=== PATIENT | female | born 1960 | race Caucasian/White ===

== ENCOUNTER → 2016-10-02 | Outpatient (CLI) | payer OTHER ==
[2016-10-02 09:45] LABS: Basophils # (auto) 0 uL; Basophils % (auto) 0.4 % (0.0-2.0); CONDITION Y; Eosinophils # (auto) 0.2 uL; Eosinophils % (auto) 3.3 % (0.0-7.0); Hematocrit 42.8 % (36.0-46.0); Hemoglobin 14.7 g/dL (12.2-16.2); Lymphocytes # (auto) 2.5 uL; Lymphocytes % (auto) 41.8 % (10.0-50.0); Mean Corpuscular Hemoglobin 29.2 pg (28.0-32.0); Mean Corpuscular Hgb Conc. 34.3 g/dL (32.0-36.0); Mean Corpuscular Volume 85.3 fL (80.0-100.0); Mean Platelet Volume 7.8 fL (7.4-10.4); Monocytes # (auto) 0.5 uL; Monocytes % (auto) 8.3 % (0.0-12.0); Neutrophils # (auto) 2.7 uL; Neutrophils % (auto) 46.2 % (37.0-80.0); Platelet Count (auto) 278 10^3/uL (140-450); Red Cell Distribution Width 14.2 % (11.6-16.0); White Blood Cell 5.9 10^3/uL (4.4-10.8)
[2016-10-02 10:02] LABS: Albumin 4.1 g/dL (3.4-5.0); BUN/Creatinine Ratio 20.3; Bilirubin, Total 0.6 mg/dL (0.2-1.0); Calcium 9.5 mg/dL (8.5-10.1); Potassium 3.9 mmol/L (3.5-5.1); Total Protein 7.5 g/dL (6.4-8.2)
[2016-10-02 16:42] LABS: Urine Bilirubin Negative (Negative); Urine Blood Negative /uL (Negative); Urine Color Yellow (Yellow); Urine Glucose Normal (Normal); Urine Ketone Negative (Negative); Urine Mucus FEW (None Seen); Urine Nitrite Negative (Negative); Urine RBC 1 /hpf (0 - 4); Urine Squamous Epithelial Cell FEW /hpf (<5); Urine Urobilinogen Normal (Negative); Urine pH 5.5 (5.0-8.0)
== END | disposition home or self-care (01) ==
LOC: LAB 09:09
PROVIDERS: ATTEND Internal Medicine
DX: Z68.41 Body mass index [BMI] 40.0-44.9, adult (principal); Z12.11 Encounter for screening for malignant neoplasm of colon
CPT/HCPCS: 36415; 80053; 80061; 81001; 84443; 85025

== ENCOUNTER → 2016-12-15 | Outpatient (CLI) | payer OTHER ==
[2016-12-15 16:52] LABS: Basophils # (auto) 0 uL; Basophils % (auto) 0.4 % (0.0-2.0); Eosinophils # (auto) 0.1 uL; Eosinophils % (auto) 1.6 % (0.0-7.0); Hematocrit 40.7 % (36.0-46.0); Hemoglobin 14.2 g/dL (12.2-16.2); Lymphocytes # (auto) 2.6 uL; Lymphocytes % (auto) 27.4 % (10.0-50.0); Mean Corpuscular Hemoglobin 30.5 pg (28.0-32.0); Mean Corpuscular Hgb Conc. 34.8 g/dL (32.0-36.0); Mean Corpuscular Volume 87.5 fL (80.0-100.0); Mean Platelet Volume 7.4 fL (6.9-10.8); Monocytes # (auto) 0.7 uL; Monocytes % (auto) 7.4 % (0.0-12.0); Neutrophils # (auto) 6.1 uL; Neutrophils % (auto) 63.2 % (37.0-80.0); Platelet Count (auto) 237 10^3/uL (140-450); White Blood Cell 9.6 10^3/uL (4.4-10.8)
[2016-12-15 17:13] LABS: Albumin 4.1 g/dL (3.4-5.0); BUN/Creatinine Ratio 11.8; Bilirubin, Total 0.7 mg/dL (0.2-1.0); Calcium 9.1 mg/dL (8.5-10.1); Potassium 3.8 mmol/L (3.5-5.1); Total Protein 7.8 g/dL (6.4-8.2)
== END | disposition home or self-care (01) ==
LOC: LAB 16:17
PROVIDERS: ATTEND Internal Medicine
DX: E03.9 Hypothyroidism, unspecified (principal); K57.92 Diverticulitis of intestine, part unspecified, without perforation or abscess without bleeding
CPT/HCPCS: 36415; 80053; 85025; 86141; 86800

== ENCOUNTER 2024-05-16 09:15 | Inpatient (IN) | payer MEDICARE, OTHER ==
[~2024-05-16] VITALS: Ht 170.2 cm; Wt 117.6 kg
[2024-05-16] MEDS ORDERED: fentaNYL CITRATE 100 MCG/2 ML VL ONE (10:46)
[2024-05-16] MEDS ORDERED: HYDROmorphone HCL 2 MG/ML VL/or syr ONE (10:46)
[2024-05-16] MEDS ORDERED: MIDAZOLAM HCL 2MG/2ML 2ml VIAL (1mg/ml) ONE (10:46)
[2024-05-16] MEDS ORDERED: GLYCOPYRROLATE 0.2 MG/ML 1ML VIAL ONE (10:47)
[2024-05-16] MEDS ORDERED: DexAMETHasone SOD PHOS 10MG/1ML VIAL INJ ONE (10:47)
[2024-05-16] MEDS ORDERED: PROPOFOL 10 MG/ML 20 ML IV ONE (10:47)
[2024-05-16] MEDS ORDERED: ROCURONIUM 10MG/ML 10ML VIAL IV ONE (10:47)
[2024-05-16] MEDS ORDERED: ePHEDrine SULFATE 50 MG/ML AMP ONE (10:47)
[2024-05-16] MEDS ORDERED: LIDOCAINE 2% (LOCAL ANESTH.) PF 5ml SDV ONE (10:47)
[2024-05-16] MEDS ORDERED: ONDANSETRON HCL 4 MG/2 ML VIAL ONE (10:47)
[2024-05-16] MEDS ORDERED: MORPHINE SULF PF 5 MG/10 ML VIAL ONE (11:46)
[2024-05-16] MEDS: ACETAMINOPHEN IV 1000 MG/100ML (10MG/ML) IV ONE (12:07)
[2024-05-16] MEDS: CELECOXIB 100 MG CAP PO ONE (12:07)
[2024-05-16] MEDS: PREGABALIN CAPSULE 75 MG CAP PO ONE (12:07)
[2024-05-16] MEDS ORDERED: MORPHINE SULFATE INJ 2 MG/ml SYRG IV PRN (12:15)
[2024-05-16] MEDS ORDERED: NITROGLYCERIN 0.4 MG SL TAB SL PRN (12:15)
[2024-05-16] MEDS ORDERED: HYDROmorphone HCL 2 MG/ML VL/or syr IV PRN ×2 (12:15)
[2024-05-16 14:10] VITALS: O2SAT 98
[2024-05-16 17:21] VITALS: BP 147/82; PULSE 55; RESP 16; TEMP 97.3; O2SAT 97
[2024-05-16] MEDS: VANCOMYCIN HCL 1000 MG VL ONE ×2 (17:54→17:55)
[2024-05-16] MEDS: TRANEXAMIC ACID 10 ML ONE ×2 (17:54→17:55)
[2024-05-16] MEDS: ceFAZolin 2 GM/D5W100ml 100 ML IV ONE (17:54)
[2024-05-16] MEDS: CEFEPIME 1GM/ 50ML 50 ML IV ONE (17:55)
[2024-05-16] MEDS: KETOROLAC TROMETH 60MG/2ML VIAL ONE (17:55)
[2024-05-16] MEDS: ceFAZolin 1GM/50ML 50 ML IV SCH (17:55)
[2024-05-16] MEDS: LACTATED RINGER'S 1,000 ML IV SCH (17:55)
[2024-05-16] MEDS: BUPIVACAINE 0.25% INJ 50ML VIAL ONE (17:55)
[2024-05-16] MEDS: ENOXAPARIN SOD 30 MG/0.3 ML SYRINGE SC ONE (17:56)
[2024-05-16] MEDS: LIDOCAINE 2% JELLY 11ml (GLYDO) ONE (17:56)
[2024-05-16] MEDS: SODIUM CHLOR 0.9% PF (SALINE LOCK) 10ML VIAL/SYR IV SCH (17:56)
[2024-05-16] MEDS: ONDANSETRON HCL 4 MG/2 ML VIAL IV ONE (17:56)
[2024-05-16 18:36] VITALS: PULSE 55; RESP 16; O2SAT 97
[2024-05-16] MEDS: OXYCODONE W/ ACETAMINOPHEN 5/325MG TABLET PO PRN (19:55)
[2024-05-16] MEDS: ONDANSETRON HCL 4 MG/2 ML VIAL IV PRN (19:55)
[2024-05-16 20:00] VITALS: PULSE 66; RESP 18; O2SAT 99
[2024-05-16 20:42] VITALS: BP 139/82; PULSE 66; RESP 18; TEMP 98.2; O2SAT 99
[2024-05-16] MEDS: DOCUSATE SOD 100 MG CAP PO SCH (21:21)
[2024-05-17] VITALS (8 sets, daily range): BP systolic 105–121; BP diastolic 49–61; PULSE 64–84; RESP 16–19; TEMP 98–98.9; O2SAT 92–99
--- NOTE | 2024-05-17 06:04 | DVHOP2 ---
Operative Report - 2 Report Details Date: 05/16/24 Preop Diagnosis: Right hip osteoarthritis Postop Diagnosis: Right hip osteoarthritis Surgeon: Yunier Benavidez DO/ David Velasquez MD Engineering Systems Analyst: Tono ESPINOSA Anesthesiologist: Froy TREADWELL Anesthesia: General Implant: see implant log Consent: The patient was informed of the risks and benefits of the procedure. These include but are not limited to complications of anesthesia, postoperative infection, incomplete relief of symptoms, recurrence of symptoms, damage to blood vessels, nerves and tendons, deep venous thrombosis, pulmonary embolism and possible need for repeat surgery in the future. Estimated Blood Loss: 300 cc Name of Procedure Performed Right total hip arthroplasty, increased complexity due to BMI above 40 Procedure Details Procedure Details: FINDINGS: Extensive degenerative disease with grade IV changes INDICATION: This patient has failed non-operative treatments for hip arthritis and is now indicated for a total hip replacement. Preoperatively in the waiting area as well as in the office, I had a long discussion with the patient regarding the plan, the expected outcome, the risks, benefits, and alternatives of surgery. The risks include, but are not limited to, infection (which may require future surgery and removal of implants) , bleeding (which may require a transfusion), damage to nerves, arteries, veins, tendons, muscles and other adjacent structures. Also discussed the possibilities of dislocation, leg-length discrepancy, intraoperative fractures, implant loosening, heterotopic bone formation, and revision for variety of reasons, and medical complications etc. This was discussed at length and consent has been obtained. DESCRIPTION OF PROCEDURE: In the preoperative holding area, the consent was reviewed and the appropriate extremity was verified by the patient and marked with my initials. The patient was then transferred to the operating theatre. Appropriate anesthetia was induced. All bony prominences were well padded. A time out was performed verifying the side and site of surgery according to standard protocol. Preoperative antibiotics were given. Tranexamic acid was given. The patient was then placed in the lateral decubitus position and fixed with rigid pelvic fixation. All bony prominences were well padded and an axillary roll was placed. The affected hip area was then prepped and draped in the usual sterile fashion. We made a standard posterolateral incision sharply through the skin and carried our dissection down through subcutaneous tissue to the underlying fascia achieving hemostasis where necessary. We incised the fascia in line with our incision. We identified and protected the sciatic nerve. We took down the external rotators and hip capsule from their insertion into the greater trochanter, tagged them and retracted them posteriorly for further protection of the sciatic nerve. We then dislocated the femoral head and performed an osteotomy of the femoral neck in accordance with our pre-operative plan. The labrum was excised with a long-handle knife, and we exposed the acetabular rim and cotyloid fossa. We then reamed up to our final size in accordance with the preoperative plan. We copiously irrigated and then impacted the final cup into position. We placed acetabular dome screws into the posterior-superior quadrant in the usual fashion. We irrigated the cup and impacted the liner, checking to make sure it was well seated. Attention was then turned to the femur. We used a box osteotome followed by a canal finder to gain entry to the canal. Intramedullary contents were suctioned and care was taken to ensure they did not touch the tissues. We sequentially reamed until good cortical contact, then broached up to out final size. We trialed with the appropriate femoral neck and head and reduced the hip. The hip was taken through a full range of motion. The hip soft tissues were examined in extension and external rotation, the anterior capsule and IT band were palpated, and combined anteversion was determined to be 40 degrees. The hip was stable at maximum flexion, at 90 degrees of flexion and 45 degrees of internal rotation and the position of sleep. The hip was then dislocated and trial components removed. We copiously irrigated the wound and impacted the final femoral stem into position. The femoral head was impacted onto a clean and dry trunion and confirmed to be seated. The hip was reduced ensuring to tissues in the acetabular cup. We again brought it through a full functional range of motion and there was no evidence for dislocation, instability, or impingement. The checkpoint was removed. A dilute betadine solution (17.5mL in 500mL saline) was used to wash the joint and left to sit for 3 minutes. This was then irrigated out with copious amounts of pulse lavage. We sprinkled 1g vancomycin powder below the fascia and 1g above the fascia. We copiously irrigated the wound and soft tissues. The short external rotators and capsule were repaired to the greater trochanter through drill holes, and the quadratus was repaired. We palpated the sciatic nerve in continuity without tension. The fascia was closed with vicryl and a barbed suture. We closed over the fascia with vicryl suture and re-approximated the skin with donta. . A sterile dressing was placed. We returned the patient to the supine position. We verified all lower extremity compartments were soft and compressible and that we had intact distal pulses and checked our leg length nondenominational. Condition Good Disposition Still a Patient DAVID VELASQUEZ MD May 17, 2024 06:04
[2024-05-17 07:31] LABS: Hematocrit 33.8 % (36.0-46.0); Hemoglobin 11.3 g/dL (12.2-16.2)
[2024-05-17 07:43] LABS: Alanine Aminotransferase 12 U/L (7-40); Alkaline Phosphatase 85 U/L (46-116); Anion Gap 7 (5-15); Aspartate Aminotransferase 21 U/L (13-40); BUN/Creatinine Ratio 13.7 (10.0-20.0); Blood Urea Nitrogen 10 mg/dL (9-23); Calcium 9.2 mg/dL (8.7-10.4); Carbon Dioxide 24 mmol/L (20-31); Glucose 97 mg/dL (74-106); Potassium 3.8 mmol/L (3.5-5.1); Sodium 139 mmol/L (136-145)
[2024-05-17 07:44] LABS: Bilirubin, Total 0.7 mg/dL (0.2-1.0)
[2024-05-17 07:52] LABS: Chloride 108 mmol/L (98-107)
--- NOTE | 2024-05-17 08:02 | DVHPN2 ---
Progress Note Date Seen: May 17, 2024 Medical Necessity Reason Pt with a Central, PICC or Fol: No Subjective Patient reports: No new complaints (patient is doing well, overall denies any pain and has been resting comfortably) Objective vital signs Vital Sign Date Time Temp Pulse Resp B/P (MAP) Pulse Ox O2 Delivery O2 Flow Rate FiO2 05/17/24 05:00 98.4 76 19 106/56 (73) 95 98.4 05/16/24 20:00 Room Air* 0 N/A Nasal Cannula* Total Intake and Output 05/16/24 05/16/24 05/17/24 15:00 23:00 07:00 Intake Total 100 ml 50 ml 400 ml Balance 100 ml 50 ml 400 ml medications Current Medications Medications Dose Ordered Sig/Kurt Route Start Time Stop Time Status Last Admin Dose Admin Lactated Ringer's 1,000 ml @ 100 mls/hr Q10H IV 05/16/24 12:15 05/16/24 22:15 100 MLS/HR Sodium Chloride 10 ml Q8HR IV 05/16/24 14:00 05/17/24 06:19 10 ML Oxycodone/ Acetaminophen 1 tab Q4HP PRN PO 05/16/24 12:15 05/16/24 19:55 1 TAB Hydromorphone HCl 1 mg Q2HP PRN IV 05/16/24 12:15 Ondansetron HCl 4 mg Q6HP PRN IV 05/16/24 12:15 05/16/24 19:55 4 MG Docusate Sodium 100 mg Q12HR PO 05/16/24 22:00 05/16/24 21:21 100 MG Enoxaparin Sodium 40 mg DAILY SC 05/17/24 10:00 Future Hold Nitroglycerin 0.4 mg Q5MINP PRN SL 05/16/24 12:15 Morphine Sulfate 2 mg Q30M PRN IV 05/16/24 12:15 Examination: GENERAL:Normal, MSK:Abnormal laboratory and microbiology Laboratory Tests 05/17/24 05:37 Test 05/17/24 05:37 Range/Units Serum Glucose 97 74-106 mg/dL Problem List/Assessment/Plan Problem List/Assessment/Plan 63 year old female who is s/p Right REYES POD 1 1. Pain control 2. DVT ppx 3. WBAT RLE with walker and posterior hip precautions 4. Physical therapy with posterior hip protocol 5. Abduction pillow at night when sleeping Plan discussed with: Patient Date of Service: May 17, 2024 Billing Provider: YESENIA VELASQUEZ MD Common Visit Codes: NOT BILLABLE SOTO PEDROZA NP May 17, 2024 08:02
--- NOTE | 2024-05-17 08:36 | DVH ---
CLINICAL INDICATION: sp Right REYES TECHNIQUE: XY PELVIS AP Comparison: None FINDINGS/IMPRESSION: : There is no evidence of acute fracture or dislocation. Right hip arthroplasty. Severe degenerative changes of the left hip.
--- NOTE | 2024-05-17 14:27 | DVHINCON2 ---
Date Seen: May 17, [address] VELASQUEZ Family History: Cardiovascular disease G8 FATHER, FHx: dementia G8 MOTHER, Osteoarthritis G8 MOTHER, Allergies: Coded Allergies: NO KNOWN ALLERGIES (Unverified , 02/08/16) Home Meds No Active Prescriptions or Reported Meds Current Medications Current Medications Medications (Trade) Dose Ordered Sig/Kurt Route PRN Reason Start Time Stop Time Status Last Admin Docusate Sodium (Colace Capsule) 100 mg Q12HR PO 05/16/24 22:00 05/17/24 09:50 Enoxaparin Sodium (Lovenox) 40 mg DAILY SC 05/17/24 10:00 Vital Signs Vital Signs Date Time Temp Pulse Resp B/P (MAP) Pulse Ox O2 Delivery O2 Flow Rate FiO2 05/17/24 13:00 98.9 72 19 105/49 (67) 96 98.9 05/17/24 08:23 Room Air* 0 N/A Nasal Cannula* Labs/Diagnostic Data Labs Test 05/17/24 05:37 Range/Units Hemoglobin 11.3 L 12.2-16.2 g/dL Hematocrit 33.8 L 36.0-46.0 % Sodium Level 139 136-145 mmol/L Potassium Level 3.8 3.5-5.1 mmol/L Chloride Level 108 H 98-107 mmol/L Carbon Dioxide Level 24 20-31 mmol/L Anion Gap 7 5-15 Blood Urea Nitrogen 10 9-23 mg/dL Creatinine 0.73 0.550-1.02 mg/dL Glomerular Filtration Rate Calc 91 >90 mL/min BUN/Creatinine Ratio 13.7 10.0-20.0 Serum Glucose 97 74-106 mg/dL Calcium Level 9.2 8.7-10.4 mg/dL Total Bilirubin 0.7 0.2-1.0 mg/dL Aspartate Amino Transferase (AST) 21 13-40 U/L Alanine Aminotransferase (ALT) 12 7-40 U/L Alkaline Phosphatase 85 46-116 U/L Total Protein 6.0 5.7-8.2 g/dL Albumin 4.0 3.2-4.8 g/dL Assessment SEE DICTATED NOTE Plan discussed with: Patient Date of Service: May 17, 2024 Billing Provider: AGNIESZKA EDWARDS MD Common Visit Codes: [id number] INP/OBS CARE (HIGH) AGNIESZKA EDWARDS MD May 17, 2024 14:27
[2024-05-17] MEDS ORDERED: HYDROmorphone HCL 2 MG/ML VL/or syr IV PRN (14:30)
[2024-05-17] MEDS: SODIUM CHLORIDE 0.9% 1,000 ML IV SCH (14:47)
--- NOTE | 2024-05-17 15:35 | DVHINCON2 ---
DATE OF CONSULTATION: 05/17/2024 INTERNAL MEDICINE CONSULT HISTORY OF PRESENT ILLNESS: The patient is a 63-year-old lady who has been admitted after she underwent surgery on the right hip for DJD of the hip. The patient denies any chest pain, shortness of breath. She was dizzy, however, she got up with physical therapy. No history of nausea or vomiting. REVIEW OF SYSTEMS: Review of rest of systems otherwise currently negative. PAST MEDICAL HISTORY: No significant illness in past. MEDICATIONS: She takes no medications on a regular basis. ALLERGIES: No known drug allergies. SOCIAL HISTORY: Denies smoking or alcohol. Lives at home with family. FAMILY HISTORY: Negative. PHYSICAL EXAMINATION: GENERAL: The patient is awake, alert. VITAL SIGNS: Temperature 98.4, pulse 71 per minute, blood pressure 105/49. SHEENT: Unremarkable. NECK: There is no JVD, no pedal edema. LUNGS: Equal bilaterally. No added sounds. CARDIOVASCULAR: S1, S2 are regular. No murmurs. ABDOMEN: Soft. There is no organomegaly. NEUROLOGIC: Nonfocal. MUSCULOSKELETAL: There is a dressing at the site of right hip surgery. ASSESSMENT AND PLAN: * Hypotension. The patient will be placed on IV fluids and blood pressure will be monitored. * Morbid obesity. * Status post right hip surgery for degenerative joint disease of the hip. The patient will be placed on physical therapy and pain medications. MD CAMI Garsia/CARLA TID: [id number] RECEIPT: [id number]
[2024-05-17] MEDS: ENOXAPARIN SOD 40 MG/0.4 ML SYRINGE SC ONE (16:49)
[2024-05-17] MEDS: ACETAMINOPHEN 325 MG TAB PO PRN (18:07)
[2024-05-18 01:00] VITALS: BP 103/58; PULSE 78; RESP 20; TEMP 98.4; O2SAT 94
[2024-05-18 05:00] VITALS: BP 133/55; PULSE 70; RESP 20; TEMP 98.2; O2SAT 96
[2024-05-18 07:28] LABS: Alanine Aminotransferase 10 U/L (7-40); Albumin 3.8 g/dL (3.2-4.8); Alkaline Phosphatase 75 U/L (46-116); Anion Gap 8 (5-15); Aspartate Aminotransferase 18 U/L (13-40); BUN/Creatinine Ratio 27.3 (10.0-20.0); Blood Urea Nitrogen 18 mg/dL (9-23); Calcium 9.4 mg/dL (8.7-10.4); Carbon Dioxide 25 mmol/L (20-31); Glucose 101 mg/dL (74-106); Potassium 3.7 mmol/L (3.5-5.1); Sodium 143 mmol/L (136-145); Total Protein 5.7 g/dL (5.7-8.2)
[2024-05-18 07:29] LABS: Basophils # (auto) 0 10 ^3/uL (0-0.2); Basophils % (auto) 0.3 % (0.0-2.0); Bilirubin, Total 0.4 mg/dL (0.2-1.0); Chloride 110 mmol/L (98-107); Eosinophils # (auto) 0.1 10 ^3/uL (0-0.8); Eosinophils % (auto) 1.4 % (0.0-7.0); Hematocrit 30.5 % (36.0-46.0); Hemoglobin 10.7 g/dL (12.2-16.2); Lymphocytes # (auto) 2.3 10 ^3/uL (0.4-5.4); Lymphocytes % (auto) 27.3 % (10.0-50.0); Mean Corpuscular Volume 88.6 fL (80.0-100.0); Monocytes # (auto) 0.7 10 ^3/uL (0-1.3); Monocytes % (auto) 8.3 % (0.0-12.0); Neutrophils # (auto) 5.2 10 ^3/uL (1.6-8.6); Neutrophils % (auto) 62.7 % (37.0-80.0); Platelet Count (auto) 213 10^3/uL (140-450); Red Blood Cells 3.44 10^6/uL (4.0-5.20); Red Cell Distribution Width 13.7 % (11.8-14.3); White Blood Cell 8.3 10^3/uL (4.4-10.8)
[2024-05-18 08:00] VITALS: PULSE 95; RESP 14; O2SAT 97
--- NOTE | 2024-05-18 08:47 | DVHPN2 ---
Progress Note Date Seen: May 18, 2024 Medical Necessity Reason Pt with a Central, PICC or Fol: No Objective vital signs Vital Sign Date Time Temp Pulse Resp B/P (MAP) Pulse Ox O2 Delivery O2 Flow Rate FiO2 05/18/24 05:00 98.2 70 20 133/55 (81) 96 98.2 05/17/24 20:00 Room Air* 0 N/A Nasal Cannula* Total Intake and Output 05/17/24 05/17/24 05/18/24 15:00 23:00 07:00 Intake Total 472 ml 800 ml Output Total 1500 ml Balance 472 ml -700 ml medications Current Medications Medications Dose Ordered Sig/Kurt Route Start Time Stop Time Status Last Admin Dose Admin Sodium Chloride 10 ml Q8HR IV 05/16/24 14:00 05/18/24 05:26 10 ML Oxycodone/ Acetaminophen 1 tab Q4HP PRN PO 05/16/24 12:15 05/17/24 08:37 1 TAB Ondansetron HCl 4 mg Q6HP PRN IV 05/16/24 12:15 05/16/24 19:55 4 MG Docusate Sodium 100 mg Q12HR PO 05/16/24 22:00 05/17/24 21:24 100 MG Enoxaparin Sodium 40 mg DAILY SC 05/17/24 10:00 Nitroglycerin 0.4 mg Q5MINP PRN SL 05/16/24 12:15 Morphine Sulfate 2 mg Q30M PRN IV 05/16/24 12:15 Hydromorphone HCl 1 mg Q3HP PRN IV 05/17/24 14:30 Sodium Chloride 1,000 ml @ 100 mls/hr Q10H IV 05/17/24 14:30 05/17/24 14:47 100 MLS/HR Acetaminophen 650 mg Q6HP PRN PO 05/17/24 17:30 05/17/24 18:07 650 MG laboratory and microbiology Laboratory Tests 05/18/24 06:37 Test 05/18/24 06:37 Range/Units Serum Glucose 101 74-106 mg/dL Problem List/Assessment/Plan Problem List/Assessment/Plan 63 year old female who is s/p Right REYES POD 2 1. Pain control 2. DVT ppx 3. WBAT RLE with walker and posterior hip precautions 4. Physical therapy with posterior hip protocol 5. Abduction pillow at night when sleeping 6. follow up in 2 weeks as scheduled on 06/01/2024 at 9:00 7. prescriptions for percocet, aspirin and colace sent on 05/16 to [facility] 8. clear for discharge home with home health and in home physical therapy with the following discharge recommendations: POSTOPERATIVE Posterior Total Hip INSTRUCTIONS Activity: 1. You can bear as much weight as you tolerate on your hip unless specifically instructed otherwise. You may use the walking aid which you were discharged with and switch to a cane whenever you feel comfortable doing so. You should use an assistive device until you can walk comfortably without it. Keep in mind that every patient moves at their own speed of recovery so take your time. 2. A physical therapist will visit you at home. 3. Although guarantees against a dislocation do not exist, the hip was noted to be sufficiently stable in surgery. Below are motions that you should dischargenot do for 4-6 weeks, depending on the surgical approach used. If there are questions, please call the office. a. Bend forward past 90 degrees b. Sit on a regular low chair, couch, car seat etc... c. Cross your legs d. Use a regular low toilet seat. e. Sleep on your stomach or on either side. 3. High impact activity such as jumping, aerobics, tennis, and skiing are not permitted during the first 3 months after surgery. These activities can contribute to accelerated wear and should be done with caution after this time. Discuss this with your surgeon if you have questions. 4. Although a bath or whirlpool is NOT permitted during the first 2-3 weeks, you may shower as soon as you get home from the hospital provided you are able to keep your bandage clean and dry and there is no wound drainage. If you are unable to place a secured covering over your bandage bed bath/sponge bath may likely be the more appropriate option. 5. Swimming is not permitted until the wound is healed, which typically occurs approximately 3-4 weeks after surgery. Wound Management: If the wound is draining please change the gauze pad on the wound until it stops. If drainage persists past 10 days please notify our office. If there is a sticky gel dressing over your wound, you may leave this in place for as long as it is clean and dry. If it becomes loose or causes skin irritation, it is OK to remove it and place clean gauze over your wound. 1. You might notice some bruising around the surgical site, this is normal. 2. Check your temperature on a daily basis. Please note that a low-grade temp below 101 is not uncommon after surgery especially during the first 3 days. Notify the office if your temperature spikes above 101.5 after the 3 rd post-operative date. 3. Many patients experience significant swelling in the thigh, this may extend below the knee and sometimes to the ankle. Swelling increases during the first week and subsides during the following week. 4. Provided you have been on a blood thinner since surgery and have been up and about at least three times per day, the risk of a blood clot is low and this swelling is an expected part of recovery. It will largely or completely resolve by your first post-operative visit. 5. Malachi, if present, will be removed at 2 weeks during initial post-op visit. Medications: 1. You will be discharged with pain medication, Aspirin as a blood thinner and sometimes an anti-inflammatory medication such as Celebrex or Mobic might be prescribed. Please follow the instructions regarding these medicines as provided by your nurse at the hospital. 2. Narcotic pain medication has side effects, including constipation. Please ensure you continue to take stool softeners (Colace, Senna) while taking your pain medication to help protect against constipation. Getting up and moving around at least a few times per day helps with this also. 3. Lovenox 40 Sq x 12 days followed by one regular strength 325 mg coated aspirin daily for 4 weeks after surgery. Then, take one baby aspirin, 81 mg daily for 6 weeks more. A major, yet preventable, complication of Orthopaedic Surgery is a blood clot (DVT). It is important not to miss any doses of this important medication. 4. You should restart all of your prescription medications once discharged unless specifically instructed otherwise. 5. Herbal supplements may be restarted 2 weeks after surgery. Miscellaneous issues: 1. Driving is not permitted within the first 2 weeks. 2. Your first postoperative visit will take place 2weeks after discharge. Please call the office to arrange this appointment. 3. Antibiotic preventative treatment is required before dental or other invasive procedures. Please ask your surgeon about this at your first postoperative visit. Your hip replacement contains metal which may activate metal detectors. You may wish to carry a letter from your surgeon to communicate this to security personnel. If you experience chest pain, shortness of breath or severe painful calf swelling, go to the nearest emergency room to be evaluated. Please call our office once your situation is stabilized. Plan discussed with: Patient Date of Service: May 18, 2024 Billing Provider: YESENIA VELASQUEZ MD Common Visit Codes: NOT BILLABLE SOTO PEDROZA NP May 18, 2024 08:47
[2024-05-18 09:39] VITALS: BP 134/68; PULSE 97; RESP 14; TEMP 98.2; O2SAT 95
[2024-05-18] MEDS: ENOXAPARIN SOD 40 MG/0.4 ML SYRINGE SC SCH (09:50)
[2024-05-18 13:04] VITALS: BP 142/64; PULSE 64; RESP 18; TEMP 98.7; O2SAT 98
--- NOTE | 2024-05-18 13:32 | DVHDS2 ---
Discharge Summary Date of Admission May 16, 2024 at 12:01 Date of Discharge: May 18, 2024 Labs/Diagnostic Data: Laboratory Results Test 05/18/24 06:37 White Blood Count 8.3 10^3/uL (4.4-10.8) Red Blood Count 3.44 10^6/uL (4.0-5.20) Hemoglobin 10.7 g/dL (12.2-16.2) Hematocrit 30.5 % (36.0-46.0) Mean Corpuscular Volume 88.6 fL (80.0-100.0) Mean Corpuscular Hemoglobin 31.0 pg (28.0-32.0) Mean Corpuscular Hemoglobin Concent 35.0 g/dL (32.0-36.0) Red Cell Distribution Width 13.7 % (11.8-14.3) Platelet Count 213 10^3/uL (140-450) Mean Platelet Volume 7.2 fL (6.9-10.8) Neutrophils (%) (Auto) 62.7 % (37.0-80.0) Lymphocytes (%) (Auto) 27.3 % (10.0-50.0) Monocytes (%) (Auto) 8.3 % (0.0-12.0) Eosinophils (%) (Auto) 1.4 % (0.0-7.0) Basophils (%) (Auto) 0.3 % (0.0-2.0) Neutrophils # (Auto) 5.2 10 ^3/uL (1.6-8.6) Lymphocytes # (Auto) 2.3 10 ^3/uL (0.4-5.4) Monocytes # (Auto) 0.7 10 ^3/uL (0-1.3) Eosinophils # (Auto) 0.1 10 ^3/uL (0-0.8) Basophils # (Auto) 0 10 ^3/uL (0-0.2) Nucleated Red Blood Cells 0.0 % Sodium Level 143 mmol/L (136-145) Potassium Level 3.7 mmol/L (3.5-5.1) Chloride Level 110 mmol/L (98-107) Carbon Dioxide Level 25 mmol/L (20-31) Anion Gap 8 (5-15) Blood Urea Nitrogen 18 mg/dL (9-23) Creatinine 0.66 mg/dL (0.550-1.02) Glomerular Filtration Rate Calc 97 mL/min (>90) BUN/Creatinine Ratio 27.3 (10.0-20.0) Serum Glucose 101 mg/dL (74-106) Calcium Level 9.4 mg/dL (8.7-10.4) Total Bilirubin 0.4 mg/dL (0.2-1.0) Aspartate Amino Transferase (AST) 18 U/L (13-40) Alanine Aminotransferase (ALT) 10 U/L (7-40) Alkaline Phosphatase 75 U/L (46-116) Total Protein 5.7 g/dL (5.7-8.2) Albumin 3.8 g/dL (3.2-4.8) Other Laboratory Tests 05/18/24 06:37 Brief Hx & Hospital Course: SEE DICTATED NOTE Condition at Discharge: Good Final Diagnosis/Problems List Right hip osteoarthritis Discharge Disposition: Home with Health Services Discharge Instruct/Medications Diet: Regular Activity: No Restrictions, As Tolerated Follow Up/Referral: FU WITH ORTHO/PCP IN 2 WKS Medications: RESUME HOME MEDS Discharge Statement: "Patient was advised to return to the ER or call 911 if any headaches, dizziness, shortness of breath, chest pain, abdominal pain, bleeding, fevers, or worsening of medical condition. Patient was counseled about treatment plan, medications, possible side effects, patientverbalized understanding. All questions were answered to the best of my ability. This discharge took greater then 30 minutes in planning, reviewing documentation, counseling the patient, and discussing with other team members." DME: Diagnosis: postop ASSESSMENT ASSESSMENT Assessment Right hip osteoarthritis Date of Service: May 18, 2024 Billing Provider: AGNIESZKA EDWARDS MD Common Visit Codes: [id number] DISCH DAY >30min AGNIESZKA EDWARDS MD May 18, 2024 13:32
--- NOTE | 2024-05-18 14:04 | DVHDS ---
DATE OF DISCHARGE: 05/18/2024 HISTORY OF PRESENT ILLNESS: The patient is a 63-year-old lady who was admitted after she underwent surgery on the right hip for DJD. The patient has no significant illness in past. HOSPITAL COURSE: The patient was hypotensive and that has since resolved. Hemoglobin is 10.7 at the time of discharge. The patient will now be discharged home to resume her home medications as well as to have home physical therapy and follow up with Dr. Munguia and a primary care. FINAL DIAGNOSES: Therefore, * Morbid obesity. * Status post hypotension. * Status post right hip surgery for degenerative joint disease of the hip. Time spent in discharge planning and review of plan with the patient and nursing was 37 minutes. MD CAMI Garsia/GENTRY TID: [id number] RECEIPT: [id number]
[2024-05-18 15:02] VITALS: BP 134/68; PULSE 95; RESP 14; TEMP 98.2; O2SAT 97
== END 2024-05-18 16:15 | disposition home health service (06) | DRG 470 ==
LOC: SUR 09:15 → OVERFLOW 12:01 → WEST WING 17:29
PROVIDERS: ADMIT Internal Medicine; ATTEND Internal Medicine
PROC: 0SR90JZ Replacement of Right Hip Joint with Synthetic Substitute, Open Approach (ICD-10-PCS; principal; 2024-05-16 12:11)
DX: M16.11 Unilateral primary osteoarthritis, right hip (principal); E66.01 Morbid (severe) obesity due to excess calories; I95.9 Hypotension, unspecified; Z82.49 Family history of ischemic heart disease and other diseases of the circulatory system; Z68.37 Body mass index [BMI] 37.0-37.9, adult
CPT/HCPCS: 36415; 72170; 80053; 85014; 85018; 85025; 86850; 86900; 86901; 97110; 97116; 97163; 97530; G0378; J0131; J1100; J1885; J2003; J2250; J2405; J2704; J3490

== ENCOUNTER 2024-11-08 08:04 | Outpatient (CLI) | payer MEDICARE, OTHER ==
[2024-11-08 08:20] LABS: Hematocrit 44.0 % (36.0-46.0); Hemoglobin 14.9 g/dL (12.2-16.2); Mean Corpuscular Hemoglobin 29.2 pg (28.0-32.0); Mean Corpuscular Volume 86.4 fL (80.0-100.0); Nucleated Red Blood Cells % 0.1 %
[2024-11-08 08:38] LABS: Urine Protein, UAD Negative (Negative)
[2024-11-08 08:42] LABS: INR 1.06 (0.9-1.15); Partial Thromboplastin Time 29.2 SEC (24.5-34.5); Prothrombin Time 11.2 sec (9.3-11.8)
[2024-11-08 10:09] LABS: Alanine Aminotransferase 16 U/L (7-40); Albumin 4.7 g/dL (3.2-4.8); Anion Gap 10 (5-15); BUN/Creatinine Ratio 17.5 (10.0-20.0); Blood Urea Nitrogen 14 mg/dL (9-23); Calcium 9.8 mg/dL (8.7-10.4); Carbon Dioxide 24 mmol/L (20-31); Glucose 98 mg/dL (74-106); Potassium 4.2 mmol/L (3.5-5.1); Sodium 142 mmol/L (136-145); Total Protein 7.7 g/dL (5.7-8.2)
[2024-11-08 10:10] LABS: Bilirubin, Total 0.8 mg/dL (0.2-1.0)
[2024-11-08 10:14] LABS: Alkaline Phosphatase 117 U/L (46-116); Chloride 108 mmol/L (98-107)
== END 2024-11-08 17:00 | disposition home or self-care (01) ==
LOC: LAB 08:04
PROVIDERS: ATTEND Internal Medicine
DX: Z01.812 Encounter for preprocedural laboratory examination (principal); N18.1 Chronic kidney disease, stage 1
CPT/HCPCS: 36415; 80053; 81001; 85025; 85610; 85730

== ENCOUNTER 2024-11-14 11:57 | Inpatient (IN) | payer MEDICARE, OTHER ==
[~2024-11-14] VITALS: Ht 170.2 cm; Wt 116.2 kg
[2024-11-14] MEDS: ceFAZolin 2 GM/D5W50ml 50 ML IV ONE (12:12)
[2024-11-14] MEDS: VANCOMYCIN HCL 1000 MG VL ONE (12:22)
[2024-11-14] MEDS: KETOROLAC TROMETH 30 MG/ML 1ML VIAL ONE (12:22)
[2024-11-14] MEDS: BUPIVACAINE HCL 0.25% P/F 10 ML VIAL ONE (12:23)
[2024-11-14] MEDS: CEFEPIME 1GM/50ML 50 ML IV ONE ×2 (12:23→12:49)
[2024-11-14] MEDS: TRANEXAMIC ACID 20 ML ONE (12:26)
[2024-11-14] MEDS ORDERED: MORPHINE SULF PF 5 MG/10 ML VIAL ONE (12:35)
[2024-11-14] MEDS ORDERED: KETAMINE 50mg/ML 1ml syringe ONE (14:17)
[2024-11-14] MEDS ORDERED: HYDROmorphone HCL 2 MG/ML VL/or syr ONE (14:17)
[2024-11-14] MEDS ORDERED: PROPOFOL 10 MG/ML 20 ML IV ONE (14:17)
[2024-11-14] MEDS ORDERED: SODIUM CHLORIDE LOCK 50 ML ONE (14:17)
[2024-11-14] MEDS ORDERED: fentaNYL CITRATE 5 ML ONE (14:17)
[2024-11-14] MEDS ORDERED: LIDOCAINE 1% INJ PF 5ML AMP ONE (14:17)
[2024-11-14] MEDS ORDERED: fentaNYL CITRATE 100 MCG/2 ML VL ONE (14:17)
[2024-11-14] MEDS ORDERED: ONDANSETRON HCL 4 MG/2 ML VIAL ONE (14:17)
[2024-11-14] MEDS ORDERED: LIDOCAINE 2% TOPICAL JELLY 5 ML URJT TOP ONE (14:17)
[2024-11-14] MEDS ORDERED: ROCURONIUM 10MG/ML 10ML VIAL IV ONE (14:17)
[2024-11-14] MEDS ORDERED: MIDAZOLAM HCL 2MG/2ML 2ml VIAL (1mg/ml) ONE (14:17)
--- NOTE | 2024-11-14 15:51 | DVHOP2 ---
Operative Report - 2 Report Details Date: 11/14/24 Preop Diagnosis: Left Hip DJD Postop Diagnosis: Same Surgeon: Rickie Benavidez MD Enterprise Software Engineer: Jovon Anesthesiologist: Ariel Anesthesia: Regional Implant: Ramakrishna Z1 femoral component, 54mm g7 gual mobility, 2 screws Consent: The patient was informed of the risks and benefits of the procedure. These include but are not limited to complications of anesthesia, postoperative infection, incomplete relief of symptoms, recurrence of symptoms, damage to blood vessels, nerves and tendons, deep venous thrombosis, pulmonary embolism and possible need for repeat surgery in the future. Estimated Blood Loss: 200ml Name of Procedure Performed Left Total Hip Arthroplasty Procedure Details Procedure Details: Operative Details: Preoperative medical and anesthesia clearance was obtained. The patient was seen in the preoperative area, and the operative site was confirmed and marked by myself, with verification by the orthopedic team and the patient. All questions were addressed, documentation was reviewed, and the patient was transported to the operating room in stable condition. Upon arrival in the OR, anesthesia was administered. The patient received prophylactic antibiotics and tranexamic acid. A surgical time-out was performed, confirming the correct operative site. The patient was positioned laterally with appropriate padding to the axilla, lower extremities, and pelvis. The nonoperative leg was fitted with a compression stocking and sequential compression device. The operative site was prepped and draped in the standard st erile fashion. The surgical team utilized body exhaust suits. A posterior incision was made just posterior to the greater trochanter of the Left hip. Dissection was carried through the subcutaneous tissue using electrocautery. The fascia overlying the gluteus steven was split in line with its fibers, and a portion of the distal iliotibial band was incised. A Charnley self-retaining retractor was placed, with care taken to protect the sciatic nerve. The hip was internally rotated, and the short external rotators were detached from the greater trochanter. Capsulotomy was performed, and the hip was dislocated posteriorly. Pradip retractors were used to protect soft tissues, and femoral neck osteotomy was performed according to preoperative templating. The femoral head was removed and measured. Attention was then directed to the acetabulum. Acetabular retractors were placed for exposure. The labrum and pulvinar were excised. Sequential reaming was performed to the appropriate size 54mm. The definitive acetabular component (size) was implanted at approximately 45 degrees of abduction and 20 degrees of anteversion, with fixation augmented by 2 screw(s). The liner was inserted, confirmed to be fully seated, and tested for stability. Retractors were removed, and attention was turned to the femur. A femoral elevator was used for exposure. The piriformis was excised. A Charnley awl, box osteotome, and lateralizing reamer were used to access the proximal femur. Sequential reaming and broaching were performed, and a trial broach 2 size was selected. The calcar was planed. Multiple trial reductions were performed, and the hip was assessed through a range of motion for stability and impingement. The final femoral component was implanted. The trunnion was cleaned and dried, and the femoral head was impacted and stressed. The hip was reduced. The wound was irrigated with dilute betadine and pulsatile lavage. Local anesthetic cocktail was injected into the soft tissues. The capsule and short external rotators were repaired with #5 FiberWire. The wound was irrigated again, and the fascia was closed with #1 absorbable suture. Subcutaneous tissue was closed with 2-0 absorbable suture, and the skin was closed with donta. A sterile dressing was applied, and drapes were removed. An abduction pillow was placed, and the patient was transferred to the recovery room in stable condition. Instrument and sponge counts were correct. I was present for the entire procedure. Condition Good Disposition Home with Health Services RICKIE BENAVIDEZ DO Nov 14, 2024 15:51
[2024-11-14] MEDS ORDERED: SUGAMMADEX 200mg/2ml Vial (100MG/ML) IV ONE (15:52)
[2024-11-14 16:16] VITALS: PULSE 82; RESP 14; O2SAT 96
[2024-11-14] MEDS ORDERED: MORPHINE SULFATE INJ 2 MG/ml SYRG IV PRN (16:30)
[2024-11-14] MEDS ORDERED: NITROGLYCERIN 0.4 MG SL TAB SL PRN (16:30)
[2024-11-14] MEDS ORDERED: ONDANSETRON HCL 4 MG/2 ML VIAL IV PRN (16:30)
[2024-11-14] MEDS: HYDROmorphone HCL 2 MG/ML VL/or syr IV PRN (16:38)
[2024-11-14] MEDS: KETOROLAC TROMETH 30 MG/ML 1ML VIAL IV ONE (17:06)
[2024-11-14] MEDS: hydrALAZINE HCL 20 MG/ML VL IV PRN (17:30)
[2024-11-14] MEDS ORDERED: ACETAMINOPHEN IV 1000 MG/100ML (10MG/ML) IV ONE (17:45)
[2024-11-14 18:21] VITALS: PULSE 78; RESP 16; O2SAT 98
[2024-11-14] MEDS ORDERED: DOCU-265 PO (18:51)
[2024-11-14] MEDS ORDERED: IBUP-1455 PO (18:51)
[2024-11-14 20:00] VITALS: PULSE 61; RESP 16; O2SAT 97
[2024-11-14 21:00] VITALS: BP 143/79; PULSE 61; RESP 16; O2SAT 97
[2024-11-15] VITALS (8 sets, daily range): BP systolic 121–157; BP diastolic 74–89; PULSE 68–85; RESP 16–20; TEMP 97.5–98.4; O2SAT 95–98
--- NOTE | 2024-11-15 10:35 | DVHHP2 ---
Review of Systems Allergies: Coded Allergies: NO KNOWN ALLERGIES (Unverified , 02/08/16) Medications Current Medications Medications Dose Ordered Sig/Kurt Route Start Time Stop Time Status Last Admin Dose Admin Nitroglycerin 0.4 mg Q5MINP PRN SL 11/14/24 16:30 Morphine Sulfate 2 mg Q30M PRN IV 11/14/24 16:30 Exam Vital Signs Vital Signs Date Time Temp Pulse Resp B/P (MAP) Pulse Ox O2 Delivery O2 Flow Rate FiO2 11/15/24 08:00 81 20 96 Room Air* 0 21 11/15/24 05:00 98.1 135/82 (99) 98.1 SEPSIS Sepsis Screen Physician Orders Acetaminophen Tablet (Tylenol Tablet) (11/15/24 10:45) Tramadol Hcl (Ultram) (11/15/24 10:45) Ondansetron Hcl (Zofran) (11/15/24 10:45) Docusate Sodium Capsule (Colace Capsule) (11/15/24 10:45) Morphine Sulfate Injection (11/15/24 10:45) * Senior Hr Manager Consult (11/15/24 ) Vital Signs Date Time Temp Pulse Resp B/P (MAP) Pulse Ox O2 Delivery O2 Flow Rate FiO2 11/15/24 08:00 81 20 96 Room Air* 0 21 11/15/24 05:00 98.1 72 16 135/82 (99) 98 98.1 Assessment/Plan Assessment/Plan see dictated note Plan discussed with: Patient My Orders Orders - AGNIESZKA EDWARDS MD Procedure Category Date Status Time Acetaminophen Tablet PHA 11/15/24 Verified (Tylenol Tablet) 10:45 Tramadol Hcl (Ultram) PHA 11/15/24 Verified 10:45 Ondansetron Hcl PHA 11/15/24 Verified (Zofran) 10:45 Docusate Sodium PHA 11/15/24 Verified Capsule (Colace 10:45 Morphine Sulfate PHA 11/15/24 Verified Injection 10:45 * Senior Hr Manager CONS 11/15/24 Verified Consult Date of Service: Nov 15, 2024 Billing Provider: AGNIESZKA EDWARDS MD Common Visit Codes: 39010-OASAPBB INP/OBS CARE (HIGH) Secondary Visit Codes: 63867-SLPFDPPY CARE PLAN 30 MINUTES AGNIESZKA EDWARDS MD Nov 15, 2024 10:35
[2024-11-15] MEDS ORDERED: DOCUSATE SOD 100 MG CAP PO PRN (10:45)
[2024-11-15] MEDS ORDERED: MORPHINE SULFATE INJ 2 MG/ml SYRG IV PRN (10:45)
[2024-11-15] MEDS ORDERED: ACETAMINOPHEN 325 MG TAB PO PRN (10:45)
[2024-11-15] MEDS ORDERED: ONDANSETRON HCL 4 MG/2 ML VIAL IV PRN (10:45)
[2024-11-15] MEDS ORDERED: IBUPROFEN 600 MG TAB PO PRN (10:45)
--- NOTE | 2024-11-15 10:46 | DVHHP ---
ADMIT DATE: 11/15/2024 HISTORY OF PRESENT ILLNESS: The patient is a 64-year-old lady, who was admitted after she underwent surgery on the left hip for DJD of the hip. The patient has minimal pain. No chest pain, no shortness of breath, no nausea or vomiting. REVIEW OF SYSTEMS: Review of rest of the other systems is currently negative. PAST MEDICAL HISTORY: Significant for surgery on the right hip 6 months ago. MEDICATIONS: She takes ibuprofen and Colace. ALLERGIES: No known drug allergies. SOCIAL HISTORY: Denies smoking or alcohol. FAMILY HISTORY: Negative. PHYSICAL EXAMINATION: GENERAL: The patient is awake, alert. VITAL SIGNS: Temperature of 97.5, pulse 72 per minute, blood pressure 135/82. SHEENT: Unremarkable. NECK: There is no JVD. No pedal edema. LUNGS: Equal bilaterally. No added sounds. CARDIOVASCULAR SYSTEM: S1 and S2 is regular. No murmurs. ABDOMEN: Soft. There is no organomegaly. NEUROLOGIC: Nonfocal. MUSCULOSKELETAL: There is a dressing at the site of the left hip surgery. ASSESSMENT AND PLAN: * Morbid obesity. * Status post left hip surgery for DJD of the hip. She will be placed on pain medications along with physical therapy. ADVANCED CARE PLANNING: The patient is a full code-Time spent was 17 minutes. MD CAMI Garsia/GENTRY TID: [id number] RECEIPT: [id number] MTDD
--- NOTE | 2024-11-15 16:37 | DVHDS2 ---
Discharge Summary Date of Admission Nov 14, 2024 at 16:26 Date of Discharge: Nov 15, 2024 Brief Hx & Hospital Course: SEE DICTATED NOTE Condition at Discharge: Good Final Diagnosis/Problems List LEFT HIP SURGERY Discharge Disposition: Home Discharge Instruct/Medications Diet: Regular Activity: No Restrictions, As Tolerated Follow Up/Referral: FU WITH PCP/ORTHO Medications: RESUME HOME MEDS Scheduled PRN Docusate Sodium (Docusate Sodium), 1 CAP PO [id number] PRN for constipation, (Reported) Ibuprofen Micronized (Ibuprofen), 1 TAB PO TID PRN for pain, (Reported) Discharge Statement: "Patient was advised to return to the ER or call 911 if any headaches, dizzines s, shortness of breath, chest pain, abdominal pain, bleeding, fevers, or worsening of medical condition. Patient was counseled about treatment plan, medications, possible side effects, patientverbalized understanding. All questions were answered to the best of my ability. This discharge took greater then 30 minutes in planning, reviewing documentation, counseling the patient, and discussing with other team members." ASSESSMENT ASSESSMENT Assessment LEFT HIP SURGERY Date of Service: Nov 15, 2024 Billing Provider: AGNIESZKA EDWARDS MD Common Visit Codes: 81477-DDO/OBS DISCH DAY >30min AGNIESZKA EDWARDS MD Nov 15, 2024 16:37
--- NOTE | 2024-11-15 16:45 | DVHDS ---
DATE OF DISCHARGE: 11/15/2024 HISTORY OF PRESENT ILLNESS: The patient is a 64-year-old lady who was admitted after she underwent surgery on the left hip for DJD. HOSPITAL COURSE: The patient did well postoperatively. She has been ambulating with physical therapy. The patient will now be discharged home to resume her home medications and follow up with her primary and Orthopedics. FINAL DIAGNOSES: Therefore, * Morbid obesity. * Status post left hip surgery for DJD of the hip. Time spent in discharge planning and review of plan with the patient and nursing was 38 minutes. MD CAMI Garsia/JEANETTE TID: [id number] RECEIPT: [id number]
[2024-11-16] MEDS ORDERED: PANTOPRAZOLE 40 MG TAB PO SCH (06:00)
== END 2024-11-15 20:15 | disposition home or self-care (01) | DRG 470 ==
LOC: SUR 11:57 → OVERFLOW 16:26 → EAST 17:48
PROVIDERS: ADMIT Internal Medicine; ATTEND Internal Medicine
PROC: 0SRB06Z Replacement of Left Hip Joint with Oxidized Zirconium on Polyethylene Synthetic Substitute, Open Approach (ICD-10-PCS; principal; 2024-11-14 14:19)
DX: M16.12 Unilateral primary osteoarthritis, left hip (principal); E66.01 Morbid (severe) obesity due to excess calories; Z68.37 Body mass index [BMI] 37.0-37.9, adult; Z96.642 Presence of left artificial hip joint
CPT/HCPCS: 86850; 86900; 86901; 97163; A4565; G0378; J1885; J2250; J2405; J2704; J3490

== ENCOUNTER → 2024-12-20 | Outpatient (CLI) | payer MEDICARE, OTHER ==
[~2024-12-20] MED LIST: DOCU-265 PO; IBUP-1455 PO
[2024-12-20 11:27] LABS: Hematocrit 39.0 % (36.0-46.0); Hemoglobin 13.1 g/dL (12.2-16.2); Mean Corpuscular Hemoglobin 29.1 pg (28.0-32.0); Mean Corpuscular Volume 86.8 fL (80.0-100.0); Nucleated Red Blood Cells % 0.0 %
[2024-12-20 11:57] LABS: Alanine Aminotransferase 20 U/L (7-40); Anion Gap 8 (5-15); Blood Urea Nitrogen 15 mg/dL (9-23); Calcium 10.0 mg/dL (8.7-10.4); Carbon Dioxide 27 mmol/L (20-31); Glucose 84 mg/dL (74-106); Potassium 4.6 mmol/L (3.5-5.1); Sodium 143 mmol/L (136-145); Total Protein 7.4 g/dL (5.7-8.2)
[2024-12-20 11:58] LABS: Albumin 4.7 g/dL (3.2-4.8); BUN/Creatinine Ratio 21.1 (10.0-20.0); Bilirubin, Total 0.4 mg/dL (0.2-1.0)
[2024-12-20 12:02] LABS: Alkaline Phosphatase 130 U/L (46-116); Chloride 108 mmol/L (98-107)
== END | disposition home or self-care (01) ==
LOC: LAB 10:54
PROVIDERS: ATTEND Internal Medicine
DX: K57.21 Diverticulitis of large intestine with perforation and abscess with bleeding (principal)
CPT/HCPCS: 36415; 80053; 85025; 85652; 86141